=== PATIENT | male | born 1955 | race Caucasian/White ===

== ENCOUNTER 2017-10-12 13:33 | Emergency (ER) | payer BC ==
[2017-10-12 14:03] VITALS: BP 119/82
--- NOTE | 2017-10-12 14:30 | UC ---
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 Pt reports he has a lot of PND and he took some antihistamine yesterday to alleviate symptoms. Pt denies fever, SOB, wheezing, chest pain, abdominal pain , N/V/D - History of Current Complaint Chief Complaint: UCRespiratory Stated Complaint: COUGH Time Seen by Provider: 10/12/17 14:21 Hx Obtained From: Patient Onset/Duration: Gradual Onset, Lasting Days - 2 days Timing: Constant Severity Initially: Mild Severity Currently: Mild Pain Intensity: 0 Pain Scale Used: 0-10 Numeric Character: Cough: Nonproductive Aggravating Factors: Recumbent Position Alleviating Factors: OTC Meds Associated Signs And Symptoms: Positive: URI, Nasal Congestion, Sinus Discomfort. Negative: Fever, Chills, Wheezing Related History: Seasonal Allergies - Risk Factors Pulmonary Embolism Risk Factors: Negative, Pseudomonas Risk Factors: Negative Tuberculosis Risk Factors: Negative - Allergies/Home Medications Allergies/Adverse Reactions: Allergies Allergy/AdvReac Type Severity Reaction Status Date / Time No Known Allergies Allergy Verified 10/12/17 14:02 PMH/Surg Hx/FS Hx/Imm Hx Previously Healthy: Yes Cardiovascular History: Hypertension Cancer History: Prostate Cancer - 5 years ago - Surgical History Surgical History: Yes Surgery Procedure, Year, and Place: PROSTATECTOMY - Family History Known Family History: Positive: Cardiac Disease, Diabetes - Social History Occupation: Employed Full-time Lives: With Family Alcohol Use: None Substance Use Type: None Smoking Status (MU): Never Smoked Tobacco Review of Systems Constitutional: Negative Skin: Negative Eyes: Negative ENT: Ear Ache - B/L ear pressure, Nasal Discharge, Sinus Congestion, Sinus Pain/ Tenderness, Other - +PND Respiratory: Cough - dry Cardiovascular: Negative Gastrointestinal: Negative Genitourinary: Negative Motor: Negative Neurovascular: Negative Musculoskeletal: Negative Neurological: Negative Psychological: Negative Is Patient Immunocompromised?: No All Other Systems Reviewed And Are Negative: Yes Physical Exam - Summary Physical Exam Summary: Vitals: reviewed General: Well developed, well-nourished male patient with NAD. Head and face: Normocephalic and atraumatic, Positive mild tenderness over the frontal and maxillary sinuses.. Eyes: PERRLA, EOMI x 2. Normal conjunctiva. No eye discharge. ENT: Ears and TM with normal limits. Nose: edematous and erythematous nasal mucosa with with clear discharge and erythematous mucosa. Pharynx with mild erythema, no exudate. +PND clear Neck: Supple, no JVD, no carotid bruits and no lymphadenopathy. Lungs: clear, no rales, no rhonchi, no wheezes. CVS: RRR, S1 and S2 present no murmurs or gallops appreciated. Abdomen: soft nontender with positive bowel sounds. Extremities: no edema noted. Neuro: WNL. 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 Pt reports he has a lot of PND and he took some antihistamine yesterday to alleviate symptoms. Pt denies fever, SOB, wheezing, chest pain, abdominal pain, N/V/D. Hx obtained. Pt w/ allergic rhinitis on examiantion. The patient was given medication list below. The patient was advised to stay away from allergens. The patient was instructed to return to the office or f/u w/ his PCP not improvement of symptoms. The patient understands and agrees w/ plan of care. - Differential Dx/Diagnosis Differential Diagnosis/HQI/PQRI: Bronchitis, Laryngitis, Lower Resp Infection, Sinusitis, Other - allergic rhinitis Provider Diagnoses: 1- Acute allergic rhinitis. 2-Cough Discharge - Sign-Out/Discharge Documenting (check all that apply): Discharge/Admit/Transfer - D/C home - Discharge Plan Condition: Stable Disposition: HOME Prescriptions: Benzonatate CAP* [Tessalon 100 MG CAP*] 100 mg PO TID #21 cap Fluticasone NASAL SPRAY 50MCG* [Flonase NASAL SPRAY 50MCG*] 2 spray BOTH NARES DAILY #1 btl Loratadine/Pseudoephedrine [Loratadine-D 12 Hour Tablet] 1 each PO BID #30 tab.er.12h Patient Education Materials: Allergic Rhinitis (ED) Referrals: Tahmina Rao [Primary Care Provider] - 1 Week Additional Instructions: 1-Use Flonase nasal spray as directed to help drain fluid. Also buy saline drops to clear sinuses 2-Take Loratadine PO to alleviates sinus congestion. 3- Take Tessalon tabs PO to alleviate cough, Increase fluid intake and rest 4-Return to the clinic or PCP if symptoms do not improve for further management and treatment - Billing Disposition and Condition Condition: STABLE Disposition: HOME
== END 2017-10-12 14:51 | disposition home or self-care (01) ==
LOC: UCEAST 13:33
DX: J30.9 Allergic rhinitis, unspecified (principal); R05 Cough; I10 Essential (primary) hypertension; Z85.46 Personal history of malignant neoplasm of prostate
CPT/HCPCS: 99211; G0463

== ENCOUNTER 2017-11-10 07:21 | Emergency (ER) | payer BC ==
[2017-11-10 07:46] VITALS: BP 135/86
--- NOTE | 2017-11-10 08:31 | UC ---
Chris Ervin Gabriel, scribed for MasterHenry cole MD on 11/10/17 at 0814 . Respiratory Complaint HPI - HPI Summary HPI Summary: This patient is a 62 year old M presenting to [facility] – [place], [place] with a chief complaint of a persistent cough that has gotten worse in the last 24 hours. The patient rates the pain 0/10 in severity. Symptoms aggravated by exertion. Patient denies n/v/ d and dysuria. Pt has no other complaints at this time. Pt states it began when he opened up air conditioner for the season, got dust in his face, and got sick. He was seen a month ago for the cough and was given and still uses loratadine daily. He describes the cough as spasmodic and states it feels like it is hard to get the air in. note: vital signs stable, afebrile. BP 135/86. Visit history: previous visit for cough a month ago, Barretts esophagitis. Nurse note: Was here a few weeks ago for constant cough, was medicated and it improved 90% but is now back. Having frequent cough and difficulty sleeping at night and difficulty catching breath. Has follow up with PCP but cant get him in until 11/20 and he is afraid it is going to get worse. - History of Current Complaint Chief Complaint: UCGeneralIllness Stated Complaint: COUGH Time Seen by Provider: 11/10/17 08:03 Hx Obtained From: Patient Onset/Duration: Still Present, Worse Since - 1 day Timing: Constant Severity Initially: Mild Severity Currently: Mild Pain Intensity: 0 Pain Scale Used: 0-10 Numeric Character: Cough: Nonproductive - Allergies/Home Medications Allergies/Adverse Reactions: Allergies Allergy/AdvReac Type Severity Reaction Status Date / Time No Known Allergies Allergy Verified 11/10/17 07:46 PMH/Surg Hx/FS Hx/Imm Hx Cardiovascular History: Hypertension - no on meds Cancer History: Prostate Cancer - Surgical History Surgical History: Yes Surgery Procedure, Year, and Place: PROSTATECTOMY - Family History Known Family History: Positive: Cardiac Disease, Diabetes, Other - cancer - Social History Occupation: Employed Part-time, Retired Alcohol Use: None Substance Use Type: None Smoking Status (MU): Never Smoked Tobacco - Immunization History Most Recent Tetanus Shot: UTD Review of Systems Respiratory: Cough Gastrointestinal: Negative - n/v/d Genitourinary: Negative - dysuria All Other Systems Reviewed And Are Negative: Yes - Comments Additional Review of Systems Comments: Positive: cough. Negative: n/v/d and dysuria. Physical Exam - Summary Physical Exam Summary: Appearance: The patient is well-appearing, is in no pain distress, and is well- nourished. Eyes: Conjunctiva are clear. ENT: The hearing is grossly normal, the pharynx is normal, and the TMs are normal. There is no muffled or hoarse voice. Neck: The neck is supple and there is no lymphadenopathy. Respiratory: The chest is nontender.NO RALES, RARE RHONCHI, EXTENDED EXPIRATORY PHASE BILATERALLY, NO WHEEZES rashes. Cardiovascular: Heart is regular rate and rhythm. There is no murmur. Abdomen: The abdomen is soft and nontender. There is no organomegaly. Bowel sounds: present Musculoskeletal: Strength is intact. The patient moves all extremities. Neurological: The patient is alert. Psychological: The patient displays age appropriate behavior Skin: Negative for Triage Information Reviewed: Yes Vital Signs: Initial Vital Signs Temp 98.9 F 11/10/17 07:40 Pulse 60 11/10/17 07:40 Resp 20 11/10/17 07:40 BP 135/86 11/10/17 07:40 Pulse Ox 98 11/10/17 07:40 Vital Signs Reviewed: Yes UC Diagnostic Evaluation - Laboratory O2 Sat by Pulse Oximetry: 98 Respiratory Course/Dx - Course Course Of Treatment: Healthy 62 y/o male with complaint of spasmodic cough. From the patients history it appears to be a bronchospasm not infection. I will treat with albuterol and dexamethasone. The pt he knows to follow up for any temperature change, CP, and change of cough. Patient is Urgent/Emergent. BP elevated due to current condition w/o HTN in past medical history. Medications have been included in the original chart and reviewed. Note: computer double ordered dexamethasone; cancelled one order and pharmacy called. - Differential Dx/Diagnosis Differential Diagnosis/HQI/PQRI: Other - bronchospasms vs PNA Provider Diagnoses: bronchospasms Discharge - Sign-Out/Discharge Documenting (check all that apply): Discharge/Admit/Transfer - Discharge Plan Condition: Stable Disposition: HOME Prescriptions: Albuterol HFA INHALER* [Ventolin HFA Inhaler*] 1 - 2 puff INH Q4H #1 mdi MDD 8 Dexamethasone TAB* [Decadron TAB*] 4 mg PO DAILY #4 tab MDD 2 Inhaler, Assist Devices [Aerochamber Mv] 1 mis XX Q6HR #1 mis Patient Education Materials: Bronchospasm (ED) Referrals: Tahmina Rao [Primary Care Provider] - Additional Instructions: WE DISCUSSED: 1. Your cough appears to be related to allergic reaction of your lungs, rather than an infection such as pneumonia. 2. Begin albuterol, and dexamethasone. 3. Avoid irritants. 4. Warm fluids: Hot shower, warm tea and honey. 5. Call with any questions or concerns. Go to ED for increased pain, temperature, difficulty breathing or change in cough. - Billing Disposition and Condition Condition: STABLE Disposition: HOME The documentation as recorded by the Chris hines Gabriel accurately reflects the service I personally performed and the decisions made by , Henry Green MD.
== END 2017-11-10 08:34 | disposition home or self-care (01) ==
LOC: UCEAST 07:21
DX: J98.01 Acute bronchospasm (principal); Z85.46 Personal history of malignant neoplasm of prostate
CPT/HCPCS: 99212; G0463

== ENCOUNTER 2019-04-24 07:20 | Emergency (ER) | payer BC ==
--- NOTE | 2019-04-24 07:28 | UC ---
FLU HPI - HPI Summary HPI Summary: CHIEF COMPLAINT and HPI: This is a healthy 63-year-old male who returned from a trip to [place] approximately 6 weeks ago and has complained of continuing fatigue , weakness and chills that are worse in the evening. He becomes progressively weaker during the day. For example, he has more difficulty climbing stairs. He does have a walking abnormality. Because of pain in his left knee that is chronic. This condition has worsened over the last 6 weeks,. His history is positive for prostatectomy, Valle's esophagitis, and migraines. 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 This become more and more difficult to carry out. There is no chest pain, shortness of breath, blood in stool or increasing paleness of the skin. VITAL SIGNS & SaO2 REVIEWED. Within normal limits unless noted here. blood pressure is 136/83. The patient is not on antihypertensive medication. NURSES NOTE REVIEWED. "starting in the beginning of march. pt came back from [place] pt feels chilled, tired and sore to his body. pt states last night it was worse and had difficulty walking up stairs. pt has also had sensative skin. pt has had gleason, nausea,back pain, loss of appotite. pt states he has had normal stools. " - History of Current Complaint Chief Complaint: UCRespiratory Stated Complaint: FLU SYMPTOMS Time Seen by Provider: 04/24/19 07:26 - Allergy/Home Medications Allergies/Adverse Reactions: Allergies Allergy/AdvReac Type Severity Reaction Status Date / Time No Known Allergies Allergy Verified 04/24/19 07:32 PMH/Surg Hx/FS Hx/Imm Hx - Additional Past Medical History Additional PMH: PAST MEDICAL HISTORY- CHRONIC and RECURRENT HEALTH PROBLEM LIST REVIEWED. Prostetectomy; cancer free now. Information relevant to present complaint: Valle's esophagitis. VISIT HISTORY REVIEWED. MEDICATIONS & ALLERGIES REVIEWED. HYPERTENSION STATUS:history of hypertension. No current treatment. FAMILY HISTORY: cancer. SOCIAL HISTORY: Smoker: no Home: Employment:retired dentist, works in [employer], as mcfp job. Previously Healthy: Yes - Surgical History Surgical History: Yes Surgery Procedure, Year, and Place: PROSTATECTOMY - Family History Known Family History: Positive: Cardiac Disease, Diabetes, Other - cancer - Social History Alcohol Use: None Substance Use Type: None Smoking Status (MU): Never Smoked Tobacco - Immunization History Most Recent Tetanus Shot: UTD Review of Systems All Other Systems Reviewed And Are Negative: Yes Constitutional: Positive: Fatigue Skin: Positive: Negative Eyes: Positive: Negative Respiratory: Positive: Negative Cardiovascular: Positive: Negative Gastrointestinal: Positive: Negative Neurovascular: Positive: Negative Musculoskeletal: Positive: Myalgia - diffuse; hard to climb stairs Is Patient Immunocompromised?: No Physical Exam - Summary Physical Exam Summary: Appearance: The patient is well-appearing, is in no pain or distress, and is well-nourished. Eyes: Conjunctiva are clear. Pupils are equal and reactive to light and accommodation. Extra ocular muscle movement is intact. ENT: The hearing is grossly normal, the pharynx is normal, and the TMs are normal. There is no muffled or hoarse voice. No stridor. Neck: The neck is supple and there is no lymphadenopathy. Respiratory: The chest is non-tender to palpation and without crepitus. The lungs are clear, there are normal breath sounds, and there is no respiratory distress. No wheezes, rales or rhonchi. Cardiovascular: Heart sounds reveal a regular rate and rhythm. There are no clicks, rubs or murmurs. There are no carotid bruits or thrills. Circulation is grossly intact. Abdomen: The abdomen is soft and nontender. There is no organomegaly. Bowel sounds are present and within normal limits. No point tenderness at McBurneys point. No CVA tenderness. Musculoskeletal: Strength is intact. The patient moves all extremities. Walks with a slight limp because of left knee discomfort. Neurological: The patient is alert. Motor and sensory are examination grossly intact. Speech is normal. Psychological: The patient displays age appropriate behavior, and is conversant. GCS=15. Skin: Negative for rashes. Triage Information Reviewed: Yes Flu Course/Dx - Course Course Of Treatment: This is a healthy 63-year-old male who returned from a trip to [place] approximately 6 weeks ago and has complained of continuing fatigue, weakness and chills that are worse in the evening. He becomes progressively weaker during the day. For example, he has more difficulty climbing stairs. He does have a walking abnormality. Because of pain in his left knee that is chronic. This condition has worsened over the last 6 weeks. His history is positive for prostatectomy, Valle's esophagitis, and migraines. 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 This become more and more difficult to carry out. There is no chest pain, shortness of breath, blood in stool or increasing paleness of the skin. physical examination is within normal limits. Chest x-ray is normal. Blood glucose is 103. I discussed with the patient the possibility that he might have a thyroid condition and he noted that this did run in his family. He could also have a myositis. The plan is to draw bloods here and have him follow-up with his physician next week. The patientto the Emergency Department if his condition in any way worsens or becomes problematic. - Differential Dx/Diagnosis Differential Diagnosis/HQI/PQRI: Other - polymyalgia rheumatica; hypothyroidism ; other inflammatory process Provider Diagnosis: Myalgia, Weakness Discharge ED - Sign-Out/Discharge Documenting (check all that apply): Patient Departure All imaging exams completed and their final reports reviewed: No Studies - Discharge Plan Condition: Stable Disposition: HOME Patient Education Materials: Weakness (ED) Referrals: Elmo Walls MD [Primary Care Provider] - Additional Instructions: WE DISCUSSED: PLEASE SEEK CARE AT THE EMERGENCY DEPARTMENT IF SYMPTOMS WORSEN OR IF NEW SYMPTOMS DEVELOP. FOLLOW UP WITH YOUR PRIMARY CARE PHYSICIAN IF CONDITION CONTINUES BEYOND 3 DAYS WITHOUT IMPROVEMENT. YOUR DIAGNOSIS IS: WEAKNESS YOUR PRESCRIPTION RECOMMENDATION IS: NONE. OTHER INSTRUCTIONS: Hypertension Discharge Instructions: Your blood pressure reading today was 136/83. Follow-up with your primary care provider within 4 weeks for blood pressure check and appropriate recommendations and treatment, as needed. FOR PAIN AND/OR SLEEP: For pain: Ibuprofen (Motrin and other brand names) 400-600mg PLUS acetaminophen (Tylenol and other brand names) 500mg - 1000mg every 8 hours. As we discussed, your condition may have various causes. Your blood glucose is normal, the official chest x-ray reading is normal, and your blood has been drawn to see if there is any infection, inflammation or abnormality of your thyroid gland. These results should be returned in 1-2 days. Follow-up with your doctor using this information for further evaluation and treatment. Continue to observe closely and write down the course of your symptoms over your waking hours and specifically which muscles feel weak. Call us with any questions or concerns. - Billing Disposition and Condition Condition: STABLE Disposition: Home
[2019-04-24 07:32] VITALS: BP 136/83
[2019-04-24 10:15] LABS: ABS Lymphocytes 1.2 10^3/ul (1.0-4.8); ABS Monocytes 0.8 10^3/ul (0-0.8); ABS Neutrophils 7.3 10^3/ul (1.5-7.7); Eosinophil % 0.4 %; Hematocrit 44 % (42-52); Hemoglobin 14.7 g/dL (14.0-18.0); Lymphocyte % 13.2 %; Mean Corpuscular HGB Conc 33 g/dL (31-36); Mean Corpuscular Hemoglobin 30 pg (27-31); Mean Corpuscular Volume 90 fL (80-94); Mean Platelet Volume 7.3 fL (7.4-10.4); Nucleated Red Blood Cells % 0.1; Platelet Count 242 10^3/uL (150-450); Red Blood Count 4.88 10^6 /uL (4.18-5.48); Red Cell Distribution Width 15 % (10-15); White Blood Count 9.4 10^3/uL (3.5-10.8)
[2019-04-24 10:40] LABS: TSH (Thyroid Stimulating Horm) 0.74 mcIU/mL (0.34-5.60)
[2019-04-24 10:43] LABS: Albumin 4.1 g/dL (3.2-5.2); Calcium 9.5 mg/dL (8.6-10.3); Potassium 3.9 mmol/L (3.5-5.0); Total Bilirubin 0.5 mg/dL (0.2-1.0)
[2019-04-24 10:49] LABS: Albumin/Globulin Ratio 1.6 (1-3); BUN/Creatinine Ratio 17.9 (8-20); EGFR African American 111.3 (>60); Globulin 2.6 g/dL (2-4); Total Protein 6.7 g/dL (6.4-8.9)
[2019-04-24 11:32] LABS: Erythrocyte Sed Rate 10 mm/Hr (0-19)
--- NOTE | 2019-04-25 11:47 | UC ---
- Progress Note Progress Note: CBC, CMP, TSH GROSSLY UNREMARKABLE. NO CHANGE IN MANAGEMENT. FOLLOW-UP WITH PCP DISCUSSED. Course/Dx - Diagnoses Provider Diagnoses: Myalgia, Weakness Discharge ED - Sign-Out/Discharge Documenting (check all that apply): Post-Discharge Follow Up All imaging exams completed and their final reports reviewed: No Studies - Discharge Plan Condition: Stable Disposition: HOME Patient Education Materials: Weakness (ED) Referrals: Elmo Walls MD [Primary Care Provider] - Additional Instructions: WE DISCUSSED: PLEASE SEEK CARE AT THE EMERGENCY DEPARTMENT IF SYMPTOMS WORSEN OR IF NEW SYMPTOMS DEVELOP. FOLLOW UP WITH YOUR PRIMARY CARE PHYSICIAN IF CONDITION CONTINUES BEYOND 3 DAYS WITHOUT IMPROVEMENT. YOUR DIAGNOSIS IS: WEAKNESS YOUR PRESCRIPTION RECOMMENDATION IS: NONE. OTHER INSTRUCTIONS: Hypertension Discharge Instructions: Your blood pressure reading today was 136/83. Follow-up with your primary care provider within 4 weeks for blood pressure check and appropriate recommendations and treatment, as needed. FOR PAIN AND/OR SLEEP: For pain: Ibuprofen (Motrin and other brand names) 400-600mg PLUS acetaminophen (Tylenol and other brand names) 500mg - 1000mg every 8 hours. As we discussed, your condition may have various causes. Your blood glucose is normal, the official chest x-ray reading is normal, and your blood has been drawn to see if there is any infection, inflammation or abnormality of your thyroid gland. These results should be returned in 1-2 days. Follow-up with your doctor using this information for further evaluation and treatment. Continue to observe closely and write down the course of your symptoms over your waking hours and specifically which muscles feel weak. Call us with any questions or concerns. - Billing Disposition and Condition Condition: STABLE Disposition: Home
== END 2019-04-24 09:02 | disposition home or self-care (01) ==
LOC: UCEAST 07:20
DX: M79.10 Myalgia, unspecified site (principal); R53.1 Weakness
CPT/HCPCS: 36415; 71046; 80053; 81003; 84443; 85025; 85652; 99211; G0463

== ENCOUNTER 2019-06-17 07:13 | Emergency (ER) | payer BC, OTHER ==
[2019-06-17 07:28] VITALS: BP 141/95
--- NOTE | 2019-06-17 07:38 | UC ---
Respiratory Complaint HPI - HPI Summary HPI Summary: 63-year-old male comes in with a chief complaint of several days of runny nose and cough. 3 days ago patient was cleaning an exhaust fan without a mask and he got a lot of dust in his face nose. Ever since then he's been having a cough with sinus drainage and postnasal drip. Reports this happened several years ago and he got better with a Z-Katy and an albuterol inhaler. No history of asthma otherwise. No complaint of any shortness of breath. Is not a smoker. He's tried [id number] cough medications with very little relief. Rhinorrhea is yellow. - History of Current Complaint Chief Complaint: UCGeneralIllness Stated Complaint: COUGH, SINUS ISSUES Time Seen by Provider: 06/17/19 07:29 Pain Intensity: 0 - Allergies/Home Medications Allergies/Adverse Reactions: Allergies Allergy/AdvReac Type Severity Reaction Status Date / Time No Known Allergies Allergy Verified 06/17/19 07:21 Home Medications: Home Medications buPROPion HCl [Bupropion HCl Xl] 150 mg PO DAILY 06/17/19 [History Confirmed 02/26] PMH/Surg Hx/FS Hx/Imm Hx Previously Healthy: Yes GI/ History: Gastroesophageal Reflux Neurological History: Migraine - Surgical History Surgical History: Yes Surgery Procedure, Year, and Place: PROSTATECTOMY - Family History Known Family History: Positive: Cardiac Disease, Diabetes, Other - cancer - Social History Alcohol Use: None Substance Use Type: None Smoking Status (MU): Never Smoked Tobacco - Immunization History Most Recent Tetanus Shot: UTD Review of Systems All Other Systems Reviewed And Are Negative: Yes Constitutional: Positive: Negative Skin: Positive: Negative Eyes: Positive: Negative ENT: Positive: Nasal Discharge, Sinus Congestion Respiratory: Positive: Cough, Other - see hpi Cardiovascular: Positive: Negative Gastrointestinal: Positive: Negative Motor: Positive: Negative Neurovascular: Positive: Negative Musculoskeletal: Positive: Negative Neurological: Positive: Negative Psychological: Positive: Negative Is Patient Immunocompromised?: No Physical Exam Triage Information Reviewed: Yes Appearance: Well-Appearing, No Pain Distress, Well-Nourished Vital Signs: Initial Vital Signs Temp 99.8 F 06/17/19 07:22 Pulse 66 06/17/19 07:22 Resp 16 06/17/19 07:22 BP 141/95 06/17/19 07:22 Pulse Ox 97 06/17/19 07:22 Vital Signs Reviewed: Yes Eye Exam: Normal Eyes: Positive: Conjunctiva Clear ENT: Positive: Pharyngeal erythema, Nasal congestion, Nasal drainage, TMs normal Neck: Positive: Supple Respiratory: Positive: Lungs clear, Normal breath sounds, No respiratory distress - Dry cough Cardiovascular: Positive: RRR Musculoskeletal: Positive: Strength Intact, ROM Intact Neurological: Positive: Alert, Muscle Tone Normal Psychological: Positive: Age Appropriate Behavior Skin Exam: Normal Respiratory Course/Dx - Course Course Of Treatment: DISCUSSED VIRAL VERSES BACTERIAL INFECTIONS AND THE ROLE OF ANTIBIOTICS. THE PATIENT PREFERS TO BE ON ANTIBIOTICS AT THIS TIME. - Differential Dx/Diagnosis Provider Diagnosis: Bronchospasm, Sinusitis Discharge ED - Sign-Out/Discharge Documenting (check all that apply): Patient Departure All imaging exams completed and their final reports reviewed: No Studies - Discharge Plan Condition: Stable Disposition: HOME Prescriptions: Albuterol HFA INHALER* [Ventolin HFA Inhaler*] 2 puff INH Q4H PRN #1 mdi PRN Reason: Wheezing Azithromyxin KATY (NF) [Z-Katy (Zithromax) 250 mg tabs #6] 2 tab PO .TODAY, THEN 1 DAILY #6 tab Fluticasone NASAL SPRAY 50MCG* [Flonase NASAL SPRAY 50MCG*] 2 spray BOTH NARES DAILY #1 btl Patient Education Materials: Sinusitis (ED), Bronchospasm (ED) Referrals: Elmo Walls MD [Primary Care Provider] - Additional Instructions: FOLLOW UP WITH YOUR DOCTOR IF NOT COMPLETELY IMPROVED. GET REEVALUATED SOONER IF NOT IMPROVED OR WORSE OR ANY QUESTIONS OR CONCERNS. - Billing Disposition and Condition Condition: STABLE Disposition: Home
== END 2019-06-17 07:40 | disposition home or self-care (01) ==
LOC: UCEAST 07:13
DX: J98.01 Acute bronchospasm (principal); J32.9 Chronic sinusitis, unspecified
CPT/HCPCS: 99212; G0463